=== PATIENT | female | born 1960 | race Caucasian/White ===

== ENCOUNTER → 2019-09-21 09:59 | Outpatient (BNVA) | payer BC, SELFPAY | PROVIDERS: Family Provider Nurse Practitioner; PCP Nurse Practitioner; Visit Provider Nurse Practitioner | DX: E03.8 Other specified hypothyroidism (principal); E78.5 Hyperlipidemia, unspecified | CPT/HCPCS: 80053; 84439; 84443; 84481 ==

== ENCOUNTER → 2019-10-02 11:27 | Outpatient (BNVA) | payer BC, SELFPAY | PROVIDERS: Family Provider Nurse Practitioner; PCP Nurse Practitioner; Visit Provider Nurse Practitioner | DX: E78.5 Hyperlipidemia, unspecified (principal); R68.89 Other general symptoms and signs | CPT/HCPCS: 80048; 85025 ==

== ENCOUNTER → 2019-10-06 10:06 | Outpatient (BNVA) | payer BC, SELFPAY | PROVIDERS: Family Provider Nurse Practitioner; PCP Nurse Practitioner; Visit Provider Nurse Practitioner | DX: D72.9 Disorder of white blood cells, unspecified (principal) | CPT/HCPCS: 85025 ==

== ENCOUNTER → 2019-12-21 08:14 | Outpatient (BNVA) | payer BC, SELFPAY | PROVIDERS: Family Provider Nurse Practitioner; PCP Nurse Practitioner; Visit Provider Nurse Practitioner | DX: E03.8 Other specified hypothyroidism (principal); E78.2 Mixed hyperlipidemia | CPT/HCPCS: 80053; 84439; 84443; 84481 ==

== ENCOUNTER → 2020-01-11 09:21 | Outpatient (BNVA) | payer BC, SELFPAY | PROVIDERS: Family Provider Nurse Practitioner; PCP Nurse Practitioner; Visit Provider Nurse Practitioner Family | DX: S99.922A Unspecified injury of left foot, initial encounter (principal); S91.112A Laceration without foreign body of left great toe without damage to nail, initial encounter; W22.8XXA Striking against or struck by other objects, initial encounter | CPT/HCPCS: 73630 ==

== ENCOUNTER → 2020-04-01 16:09 | Outpatient (BNVA) | payer BC, SELFPAY | PROVIDERS: Family Provider Nurse Practitioner; PCP Nurse Practitioner; Visit Provider Nurse Practitioner | DX: E03.8 Other specified hypothyroidism (principal) | CPT/HCPCS: 84439; 84443; 84481 ==

== ENCOUNTER → 2020-08-12 08:14 | Outpatient (BNVA) | payer BC, SELFPAY | PROVIDERS: Family Provider Nurse Practitioner; PCP Nurse Practitioner; Visit Provider Nurse Practitioner | DX: E03.8 Other specified hypothyroidism (principal) | CPT/HCPCS: 84443 ==

== ENCOUNTER → 2020-08-21 08:27 | Outpatient (BNVA) | payer BC, SELFPAY | PROVIDERS: Family Provider Nurse Practitioner; PCP Nurse Practitioner; Visit Provider Nurse Practitioner | DX: E03.8 Other specified hypothyroidism (principal) | CPT/HCPCS: 84439; 84481 ==

== ENCOUNTER → 2020-10-15 16:16 | Outpatient (BNVA) | payer BC, SELFPAY | PROVIDERS: Family Provider Nurse Practitioner; PCP Nurse Practitioner; Visit Provider Nurse Practitioner | DX: E03.8 Other specified hypothyroidism (principal); E78.2 Mixed hyperlipidemia; F41.9 Anxiety disorder, unspecified | CPT/HCPCS: 80053; 80061; 84439; 84443; 84481; 85025 ==

== ENCOUNTER → 2021-01-22 09:06 | Outpatient (BNVA) | payer BC, SELFPAY | PROVIDERS: Family Provider Nurse Practitioner; PCP Nurse Practitioner; Visit Provider Orthopaedic Surgery | DX: M94.262 Chondromalacia, left knee (principal); M25.561 Pain in right knee | CPT/HCPCS: 73560; 73565 ==

== ENCOUNTER → 2021-01-28 11:43 | Outpatient (BNVA) | payer BC, SELFPAY | PROVIDERS: Family Provider Nurse Practitioner; PCP Nurse Practitioner; Visit Provider Nurse Practitioner | DX: E03.8 Other specified hypothyroidism (principal); F41.9 Anxiety disorder, unspecified | CPT/HCPCS: 80053; 84439; 84443; 84481 ==

== ENCOUNTER → 2021-08-11 09:30 | Outpatient (BNVA) | payer BC, SELFPAY | PROVIDERS: Family Provider Nurse Practitioner; PCP Nurse Practitioner; Visit Provider Nurse Practitioner | DX: E03.8 Other specified hypothyroidism (principal) | CPT/HCPCS: 84439; 84443; 84481 ==

== ENCOUNTER → 2021-08-20 10:09 | Outpatient (BNVA) | payer BC, SELFPAY | PROVIDERS: Family Provider Nurse Practitioner; PCP Nurse Practitioner; Visit Provider Nurse Practitioner | DX: R10.31 Right lower quadrant pain (principal); R10.32 Left lower quadrant pain | CPT/HCPCS: 72100 ==

== ENCOUNTER → 2021-10-16 11:35 | Outpatient (BNVA) | payer BC, SELFPAY | PROVIDERS: Family Provider Nurse Practitioner; PCP Nurse Practitioner; Visit Provider Nurse Practitioner | DX: R59.9 Enlarged lymph nodes, unspecified (principal) | CPT/HCPCS: 80053; 85025 ==

== ENCOUNTER → 2022-03-17 08:35 | Outpatient (BNVA) | payer BC, SELFPAY | PROVIDERS: Family Provider Nurse Practitioner; PCP Nurse Practitioner; Visit Provider Nurse Practitioner | DX: E03.8 Other specified hypothyroidism (principal); E78.2 Mixed hyperlipidemia; Z23 Encounter for immunization | CPT/HCPCS: 80053; 80061; 84439; 84443; 84481 ==

== ENCOUNTER → 2022-09-21 14:45 | Outpatient (BNVA) | payer BC, SELFPAY | PROVIDERS: Family Provider Nurse Practitioner; PCP Nurse Practitioner; Visit Provider Nurse Practitioner | DX: E66.9 Obesity, unspecified (principal); E78.2 Mixed hyperlipidemia | CPT/HCPCS: 80053; 80061; 84439; 84443; 84481; 85025 ==

== ENCOUNTER → 2023-03-15 08:16 | Outpatient (BNVA) | payer BC, SELFPAY | PROVIDERS: Family Provider Nurse Practitioner; PCP Nurse Practitioner; Visit Provider Nurse Practitioner | DX: E03.8 Other specified hypothyroidism (principal) | CPT/HCPCS: 80053; 84439; 84443; 84481 ==

== ENCOUNTER → 2023-06-03 11:50 | Outpatient (BNVA) | payer BC, SELFPAY | PROVIDERS: Family Provider Nurse Practitioner; PCP Nurse Practitioner; Visit Provider Nurse Practitioner | DX: E78.2 Mixed hyperlipidemia (principal); E03.8 Other specified hypothyroidism | CPT/HCPCS: 80053; 80061; 82607; 84439; 84443; 84481 ==

== ENCOUNTER → 2023-08-24 08:26 | Outpatient (BNVA) | payer BC, SELFPAY | PROVIDERS: Family Provider Nurse Practitioner; PCP Nurse Practitioner; Visit Provider Nurse Practitioner | DX: E03.8 Other specified hypothyroidism (principal) | CPT/HCPCS: 84439; 84443; 84481 ==

== ENCOUNTER → 2023-11-09 08:59 | Outpatient (BNVA) | payer BC, SELFPAY | PROVIDERS: Family Provider Nurse Practitioner; PCP Nurse Practitioner; Visit Provider Nurse Practitioner | DX: E03.8 Other specified hypothyroidism (principal) | CPT/HCPCS: 84439; 84443; 84481 ==

== ENCOUNTER → 2024-01-25 09:24 | Outpatient (BNVA) | payer BC, SELFPAY | PROVIDERS: Family Provider Nurse Practitioner; PCP Nurse Practitioner; Visit Provider Nurse Practitioner | DX: E03.8 Other specified hypothyroidism (principal) | CPT/HCPCS: 80053; 84439; 84443; 84481; 85025 ==

== ENCOUNTER → 2024-06-15 08:19 | Outpatient (BNVA) | payer BC, SELFPAY | PROVIDERS: Family Provider Nurse Practitioner; PCP Nurse Practitioner; Visit Provider Nurse Practitioner | DX: E78.2 Mixed hyperlipidemia (principal); E03.8 Other specified hypothyroidism | CPT/HCPCS: 80053; 80061; 84439; 84443; 84481 ==

== ENCOUNTER → 2024-09-13 11:37 | Outpatient (BNVA) | payer BC, SELFPAY | PROVIDERS: Family Provider Nurse Practitioner; PCP Nurse Practitioner; Visit Provider Nurse Practitioner | DX: E03.8 Other specified hypothyroidism (principal) | CPT/HCPCS: 84439; 84443; 84481 ==

== ENCOUNTER → 2024-12-14 09:27 | Outpatient (BNVA) | payer BC, SELFPAY | PROVIDERS: Family Provider Nurse Practitioner; PCP Nurse Practitioner; Visit Provider Nurse Practitioner | DX: E78.2 Mixed hyperlipidemia (principal); E03.8 Other specified hypothyroidism; E55.9 Vitamin D deficiency, unspecified | CPT/HCPCS: 80053; 80061; 82306; 84439; 84443; 84481 ==

== ENCOUNTER 2025-02-12 15:27 | Emergency (ER) | payer BC, SELFPAY ==
[2025-02-12 15:29] VITALS: BP 164/84; PULSE 63; RESP 16; TEMP 36.6; O2SAT 98; BMI 31.1
--- NOTE | 2025-02-12 15:36 | XR_ITS ---
WS: [id number] XR chest 1V portable [id number] REASON FOR EXAM: Weakness FINDINGS: Mild tortuosity of the thoracic aorta with normal heart size. Calcified granulomatous disease bilaterally. No acute pulmonary parenchymal or pleural abnormality. Mild degenerative spondylosis in the mid and lower thoracic spine. XR/XR chest 1V portable [id number] IMPRESSION: No acute chest abnormality.
--- NOTE | 2025-02-12 15:36 | CTR_ITS ---
PROCEDURE INFORMATION: Exam: CT Head Without Contrast Exam date and time: 02/12/2025 3:51 PM Age: 64 years old Clinical indication: Weakness, extremity TECHNIQUE: Imaging protocol: Computed tomography of the head without contrast. Radiation optimization: All CT scans at this facility use at least one of these dose optimization techniques: automated exposure control; mA and/or kV adjustment per patient size (includes targeted exams where dose is matched to clinical indication); or iterative reconstruction. COMPARISON: l spine RADIATION DOSE METRICS: Total DLP (mGy-cm): 966.38 FINDINGS: Brain: No hemorrhage. Diffuse periventricular white matter disease indicating small vessel disease changes. No mass effect. No collections. Age related volume loss. Cerebral ventricles: No ventriculomegaly. Paranasal sinuses: No significant air-fluid levels noted in the visualized sinuses. Mastoid air cells: Mastoid air cells are aerated with no effusions. Bones: No acute osseous abnormality. Soft tissues: 9 mm focal left frontal soft tissue swelling containing calcifications, this can be evaluated clinically as it appears to be have a slight protruding component from the scalp. CT/CT head wo con* [id number] IMPRESSION: No acute intracranial abnormality. If there is strong suspicion for stroke, MRI could be beneficial.
--- NOTE | 2025-02-12 15:39 | W.ED.WEAKNES ---
HPI - Weakness General: Chief complaint: Weakness Stated complaint: general weakness Time Seen by Provider: 02/12/25 15:28 History of Present Illness: 64-year-old female with history of migraines, anxiety, hyperlipidemia and hypothyroidism who presents to the emergency room with generalized weakness and somnolence. Apparently she was out working on a float when weakness symptoms started. She went to the clinic at [place] and suddenly had generalized weakness and nausea. Related Data Previous Rx's ?Medication ?Instructions ?Recorded albuterol sulfate 2.5 mg/3 mL 2.5 mg (3 mL) inhalation Q6H #75 mL 10/03/19 (0.083 %) solution for nebulization nebulizer accessories #1 ea 10/03/19 bupropion HCl 150 mg tablet,12 hr 150 mg PO BID #180 tabs 12/14/24 sustained-release naltrexone 50 mg tablet 50 mg PO DAILY #30 tabs 12/14/24 verapamil 180 mg tablet,extended 180 mg PO DAILY #90 tabs 12/14/24 release levothyroxine 137 mcg tablet See Rx Instructions PO DAILY #30 12/16/24 tabs liothyronine 5 mcg tablet See Rx Instructions PO .COMPLEX 12/16/24 #60 tabs Allergies Allergy/AdvReac Type Severity Reaction Status Date / Time No Known Allergies Allergy Verified 12/14/24 08:48 Review of Systems Narrative: Constitutional symptoms: Negative except as documented in HPI. Skin symptoms: Negative except as documented in HPI. Eye symptoms: Negative except as documented in HPI. ENMT symptoms: Negative except as documented in HPI. Respiratory symptoms: Negative except as documented in HPI. Cardiovascular symptoms: Negative except as documented in HPI. Gastrointestinal symptoms: Negative except as documented in HPI. Genitourinary symptoms: Negative except as documented in HPI. Musculoskeletal symptoms: Negative except as documented in HPI. Neurologic symptoms: Negative except as documented in HPI. Psychiatric symptoms: Negative except as documented in HPI. Endocrine symptoms: Negative except as documented in HPI. [facility] ED PFSH: Medical History (Updated 02/12/25 @ 17:50 by Veronique Willoughby MD) Migraine TMJ arthralgia Anxiety Mixed hyperlipidemia Adult onset hypothyroidism Surgical History History of hysterectomy Family History Other Diabetes Stroke Social History Smoking and tobacco/nicotine status: never used tobacco/nicotine Second hand smoke exposure: No Alcohol intake: never Substance/Drug Use: never Adopted: No Caregiver/support person: No Lives independently: Yes Household members: spouse Housing: House Marital status: service: No Current occupational status: employed Current occupation: [employer] [place] [employer] Current occupational exposures/hazards: No Do you think of yourself as: Straight/Heterosexual Current gender identity: Female Physical Exam Narrative: EXAM NARRATIVE: General: Somnolent but arousable Skin: Warm, dry Head: Normocephalic, atraumatic. Neck: Supple, trachea midline. Eye: Extraocular movements are intact. Ears, nose, mouth and throat: Dry oral mucosa. Cardiovascular: Regular rate and rhythm, Normal peripheral perfusion. Respiratory: Lungs are clear to auscultation, respirations are non-labored, breath sounds are equal, Symmetrical chest wall expansion. Gastrointestinal: Soft, Nontender, Non distended Musculoskeletal: no deformity. Neurological: Somnolent but oriented when awakened, No obvious focal neurological deficit observed. Psychiatric: unable to assess. Course Vital Signs: Vital signs: Vital Signs Temperature 97.8 F 02/12/25 15:29 Pulse Rate 59 L 02/12/25 17:41 Respiratory Rate 18 02/12/25 17:41 Blood Pressure 150/84 02/12/25 17:41 Pulse Oximetry 96 02/12/25 17:41 Oxygen Delivery Me thod Room Air 02/12/25 17:41 MDM - Weakness Medical Decision Making Medical decision making: Differential diagnosis for patient presenting with generalized weakness including but not limited to and based on the above HPI, review of systems and physical exam: Sepsis. Dehydration. Renal failure. Electrolyte abnormalities. Anemia. Congestive heart failure. Hypotension. Coronary syndrome. Hepatitis. Cirrhosis. Infections such as pneumonia, urinary tract infection, [place] illness, Cellulitis, Viral infections including influenza and Covid-19. Workup: labwork and lab/exam driven imaging ordered to evaluate, rule in and rule out above pathologies. CT head: No acute intracranial process. No intracranial hemorrhage, no evidence of infarct. No evidence of acute fracture. This was reviewed and interpreted by myself the emergency room physician. I also reviewed the radiology report. Chest x-ray: No acute process. No infiltrate. No pneumothorax. This was reviewed and interpreted by myself the emergency room physician. I also reviewed the radiology report. EKG: Time 1614. Rate 68. Normal sinus rhythm, No ST-T changes, no ectopy, left anterior fascicular block, This was reviewed and interpreted by myself the ER physician at 1620. Lab Review: Laboratory results were reviewed and interpreted by myself the emergency room physician. No leukocytosis. No anemia. Mild renal insufficiency with a BUN and creatinine of 24 and 1.1. She has received fluids. Urinalysis is negative for infection. Flu COVID and RSV are negative. I reviewed the patient's medical record. Reexamination: Patient has completely resolved. She now can tell me that she does remember when she was at the clinic they told her to breathe slower and that she was hyperventilating. She says she had numbness in both fingers chest pressure. This would be consistent with hyperventilation. Assessment and plan: Dehydration Weakness Probable hyperventilation syndrome. ?Normal saline bolus in the emergency room - Discharged home - Discussed plan with patient. Answered any questions. - Evaluation and treatment of this problem were appropriate in the emergency setting. Lab Data 02/12/25 16:04 02/12/25 16:04 Radiology Impressions Chest X-Ray 02/12/25 15:36 IMPRESSION: No acute chest abnormality. Head CT 02/12/25 15:36 IMPRESSION: No acute intracranial abnormality. If there is strong suspicion for stroke, MRI could be beneficial. Laboratory Results WBC 9.29 10^3/uL (3.29-11.43) 02/12/25 16:04 RBC 4.40 10^6/uL (3.85-5.65) 02/12/25 16:04 Hgb 13.30 g/dL (11.27-16.99) 02/12/25 16:04 Hct 39.6 % (36-47) 02/12/25 16:04 MCV 90.0 fl (85-98) 02/12/25 16:04 MCH 30.2 pg (27-33) 02/12/25 16:04 MCHC 33.6 g/dL (30-55) 02/12/25 16:04 RDW 12.3 % (12.1-15.1) 02/12/25 16:04 Plt Count 231 10^3/cmm (157-399) 02/12/25 16:04 MPV 9.7 fL (7.4-10.4) 02/12/25 16:04 Neut % (Auto) 76.0 % 02/12/25 16:04 Lymph % (Auto) 15.8 % 02/12/25 16:04 [place] % (Auto) 6.5 % 02/12/25 16:04 Eos % (Auto) 0.6 % 02/12/25 16:04 Baso % (Auto) 0.8 % 02/12/25 16:04 Neut # (Auto) 7.06 10^3/uL (1.8-7.7) 02/12/25 16:04 Lymph # (Auto) 1.5 10^3/uL (0.8-4.8) 02/12/25 16:04 [place] # (Auto) 0.6 10^3/uL (0.2-0.9) 02/12/25 16:04 Eos # (Auto) 0.1 10^3/uL (0.0-0.8) 02/12/25 16:04 Baso # (Auto) 0.1 10^3/uL (0.0-0.1) 02/12/25 16:04 Nucleated RBC % (auto) 0 % 02/12/25 16:04 Nucleated RBCs # 0.0 /100WBC 02/12/25 16:04 Specimen Type Arterial 02/12/25 15:40 Sample Site Radial, left 02/12/25 15:40 ABG pH 7.42 (7.35-7.45) 02/12/25 15:40 ABG pCO2 37.3 mmHg (35-45) 02/12/25 15:40 ABG pO2 56.6 mmHg (80.0-100.0) L 02/12/25 15:40 ABG PO2/FiO2 Ratio 269 02/12/25 15:40 ABG HCO3 24.3 mmol/L (22-26) 02/12/25 15:40 ABG O2 Saturation 88.8 02/12/25 15:40 ABG Base Excess 0.0 mmol/L (-2.0-2.0) 02/12/25 15:40 Amrit Test Pos 02/12/25 15:40 A-a O2 Gradient 6.2 mmHg (5-10) 02/12/25 15:40 Hematocrit 42.9 % (37-47) 02/12/25 15:40 Hgb O2 Saturation 88.5 % (95-100) L 02/12/25 15:40 Carboxyhemoglobin < 0.3 %THgb (0.4-20.1) L 02/12/25 15:40 Methemoglobin 0.4 % (0.4-1.5) 02/12/25 15:40 Total Hemoglobin 14.0 g/dL (12-16) 02/12/25 15:40 Sodium 144.0 mmol/L (131-143) H 02/12/25 15:40 Potassium 3.8 mmol/L (3.5-5.0) 02/12/25 15:40 Glucose 101.0 mg/dL (70-115) 02/12/25 15:40 Ionized Calcium 1.2 mmol/L (1.1-1.4) 02/12/25 15:40 O2 Delivery Device Room air 02/12/25 15:40 FiO2 21.0 % 02/12/25 15:40 Web Solutions Architect ID [place] 02/12/25 15:40 Sodium 144 mmol/L (136-145) 02/12/25 16:04 Potassium 4.2 mmol/L (3.5-5.1) 02/12/25 16:04 Chloride 109 mmol/L (98-107) H 02/12/25 16:04 Carbon Dioxide 23 mmol/L (22-29) 02/12/25 16:04 Anion Gap 16.2 (5-19) 02/12/25 16:04 BUN 24 mg/dL (8-23) H 02/12/25 16:04 Creatinine 1.1 mg/dL (0.5-0.9) H 02/12/25 16:04 GFR Calculation 50.0 mL/min (90-130) L 02/12/25 16:04 Glucose 100 mg/dL (65-115) 02/12/25 16:04 Calculated Osmolality 302 mOsm/kg (285-295) H 02/12/25 16:04 Lactic Acid 1.3 mmol/L (0.5-2.2) 02/12/25 16:04 Calcium 9.4 mg/dL (8.5-10.5) 02/12/25 16:04 Total Bilirubin 0.3 mg/dL (0.15-1.2) 02/12/25 16:04 AST 25 U/L (0-32) 02/12/25 16:04 ALT 35 U/L (0-33) H 02/12/25 16:04 Alkaline Phosphatase 94 U/L (35-105) 02/12/25 16:04 Troponin T Baseline 8 ng/L (0-10) 02/12/25 16:04 Total Protein 6.7 g/dL (6.6-8.7) 02/12/25 16:04 Albumin 4.5 g/dL (3.5-5.2) 02/12/25 16:04 Globulin 2.2 g/dL (1.3-4.6) 02/12/25 16:04 Urine Color Yellow (Yellow) 02/12/25 17:14 Urine Appearance Clear (CLEAR) 02/12/25 17:14 Urine pH 7.5 (5-7) 02/12/25 17:14 Ur Specific [place] 1.016 (1.005-1.030) 02/12/25 17:14 Urine Protein Negative (Negative) 02/12/25 17:14 Urine Glucose (UA) Negative (Normal) 02/12/25 17:14 Urine Ketones Trace (Negative) 02/12/25 17:14 Urine Blood 1+ (Negative) A 02/12/25 17:14 Urine Nitrate Negative (Negative) 02/12/25 17:14 Urine Bilirubin Negative (Negative) 02/12/25 17:14 Urine Urobilinogen 1.0 mg/dL (Negative) 02/12/25 17:14 Ur Leukocyte Esterase Negative (Negative) 02/12/25 17:14 Amorphous Sediment Not Reportable 02/12/25 17:14 Influenza A (PCR) Negative (Negative) 02/12/25 15:45 Influenza Type B (PCR) Negative (Negative) 02/12/25 15:45 RSV (PCR) Negative (Negative) 02/12/25 15:45 SARS-CoV-2 (PCR) Negative (Negative) 02/12/25 15:45 All radiology interpretation(s) finalized by discharge Discharge Plan Discharge Patient Disposition: Home Clinical Impression: Dehydration Condition: Stable Prescriptions: No Action albuterol sulfate 2.5 mg /3 mL (0.083 %) solution for nebulization 2.5 mg INHALATION Q6H Qty: 75 0RF (DME) nebulizer accessories Kit See Rx Instructions .ROUTE .MEDSUPPLY Qty: 1 0RF Rx Instructions: As directed naltrexone 50 mg tablet 50 mg PO DAILY Qty: 30 5RF verapamil 180 mg tablet extended release 180 mg PO DAILY Qty: 90 1RF bupropion HCl 150 mg tablet sustained-release 12 hr 150 mg PO BID Qty: 180 1RF levothyroxine 137 mcg tablet See Rx Instructions PO DAILY Qty: 30 5RF Rx Instructions: 137mcg 4 days and 68.5mcg 3 days PO daily; liothyronine 5 mcg tablet See Rx Instructions PO .COMPLEX Qty: 60 5RF Rx Instructions: 5mcg 4 days 10mcg 3 days week PO; Discharge Orders: Discharge ED (Routine); Ordered 02/12/25 Ordered By: Veronique Willoughby Referrals: Asha Beth, [facility] [Primary Care Provider, Family Practice] Discharge Diet: Usual diet Discharge Activity: Increase activity as tolerated Patient Instructions: Opioid Safety, Pain Management, Patient Portal & Tomi Instructions Activity Restrictions/Additional Instructions: Thank you for choosing [facility] for your healthcare needs today. You have been screened and evaluated and felt safe for discharge. Health conditions do change or evolve sometimes and as such it is important that you follow up with your Primary Doctor to be re checked, 3-5 days is a general good time frame for follow up. You are always welcome to return to the ED for re assessment if your symptoms are worsening or you have new concerns Print Language: Urdu Coding Level of Care Code ED Major Gifts Director for Ericka Betancur
[2025-02-12 15:53] LABS: ABG PCO2 37.3 mmHg (35-45); ABG PH Result 7.42 (7.35-7.45); Alveolar-Arterial Oxygen Gradi 6.2 mmHg (5-10); Arterial Blood Gas Hematocrit 42.9 % (37-47); Blood Gas Allen Test Pos; Blood Gas Operator Identificat MONRO; Blood Gas Sample Site Radial, left; Blood Gas Sample Type Arterial; Carboxyhemoglobin < 0.3 %THgb (0.4-20.1); Glucose Level-ABG 101.0 mg/dL (70-115); HCO3 ABG 24.3 mmol/L (22-26); Ionized Calcium Level - ABG 1.2 mmol/L (1.1-1.4); Methemoglobin 0.4 % (0.4-1.5); Oxygen Saturation ABG 88.8; PO2 ABG 56.6 mmHg (80.0-100.0); PO2 FiO2 Ratio Arterial Blood 269; Potassium Level - ABG 3.8 mmol/L (3.5-5.0); Sodium Level - ABG 144.0 mmol/L (131-143)
--- NOTE | 2025-02-12 16:14 | ECG_ITS ---
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 Measurements Intervals [place] Rate: 68 P: -8 MA: 125 QRS: -46 QRSD: 93 T: 11 QT: 408 QTc: 435 Interpretive Statements SINUS RHYTHM PATTERN CONSISTENT WITH PULMONARY DISEASE LEFT ANTERIOR FASCICULAR BLOCK [QRS AXIS <= -45, QR IN I, RS IN II] No previous ECG available for comparison Electronically Signed On 02-15-2025 08:47:37 CDT by Alon Camarena M.D. [email or web address]
[2025-02-12 16:27] LABS: Respiratory Syncytial Virus Ce NEGATIVE (Negative); SARS-CoV-2 PCR NEGATIVE (Negative)
[2025-02-12 16:33] LABS: Hematocrit 39.6 % (36-47); Hemoglobin 13.30 g/dL (11.27-16.99); Mean Corpuscular HGB Conc 33.6 g/dL (30-55); Mean Corpuscular Hemoglobin 30.2 pg (27-33); Mean Corpuscular Volume 90.0 fl (85-98); Nucleated Red Blood Cells % 0 %; Platelet Count 231 10^3/cmm (157-399); Red Blood Count 4.40 10^6/uL (3.85-5.65); White Blood Count 9.29 10^3/uL (3.29-11.43)
[2025-02-12 16:56] LABS: Alanine Aminotransferase 35 U/L (0-33); Albumin Level 4.5 g/dL (3.5-5.2); Alkaline Phosphatase 94 U/L (35-105); Anion Gap 16.2 (5-19); Aspartate Amino Transferase 25 U/L (0-32); Blood Urea Nitrogen 24 mg/dL (8-23); Calcium 9.4 mg/dL (8.5-10.5); Carbon Dioxide 23 mmol/L (22-29); Chloride 109 mmol/L (98-107); Creatinine Clr Calc Pharmacy 49.6771; Globulin 2.2 g/dL (1.3-4.6); Glucose 100 mg/dL (65-115); Osmolality Calculated 302 mOsm/kg (285-295); Potassium 4.2 mmol/L (3.5-5.1); Sodium 144 mmol/L (136-145); Total Protein 6.7 g/dL (6.6-8.7)
[2025-02-12 17:06] LABS: Troponin(5th) Baseline 8 ng/L (0-10)
[2025-02-12 17:09] LABS: Lactic Sepsis W/Reflex 1.3 mmol/L (0.5-2.2)
--- NOTE | 2025-02-12 17:25 | ECG_ITS ---
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 Measurements Intervals [place] Rate: 63 P: -3 NH: 118 QRS: -45 QRSD: 97 T: 2 QT: 426 QTc: 438 Interpretive Statements SINUS RHYTHM WITH SHORT NH INTERVAL PATTERN CONSISTENT WITH PULMONARY DISEASE LEFT ANTERIOR FASCICULAR BLOCK [QRS AXIS <= -45, QR IN I, RS IN II] Compared to ECG 02/12/2025 16:14:07 Short NH interval now present Electronically Signed On 02-15-2025 09:02:34 CDT by Alon Camarena M.D. [email or web address]
[2025-02-12 17:41] VITALS: BP 150/84; PULSE 59; RESP 18; O2SAT 96
[2025-02-12 17:42] LABS: Glucose Urine UA Negative (Normal); Nitrate Urine Negative (Negative); Specific Gravity, Urine 1.016 (1.005-1.030)
[2025-02-12 18:05] VITALS: BP 154/87; PULSE 60; RESP 16; O2SAT 92
== END 2025-02-12 18:05 | disposition home or self-care (01) ==
PROVIDERS: Emergency Provider Emergency Medicine; PCP Nurse Practitioner
DX: E86.0 Dehydration (principal); Z11.52 Encounter for screening for COVID-19; E78.2 Mixed hyperlipidemia
CPT/HCPCS: 36415; 36600; 70450; 71045; 80051; 80053; 81001; 82330; 82805; 83605; 84484; 85025; 87040; 87637; 93005; 99285; J7030

== ENCOUNTER → 2025-02-14 08:50 | Outpatient (BNVA) | payer BC, SELFPAY | PROVIDERS: PCP Nurse Practitioner; Visit Provider Nurse Practitioner | DX: E03.8 Other specified hypothyroidism (principal) | CPT/HCPCS: 80053; 84439; 84443; 84481 ==